=== PATIENT | male | born 2000 | race Caucasian/White ===

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

== ENCOUNTER 2022-01-01 09:53 | Emergency (ER) | payer OTHER ==
[~2022-01-01] VITALS: Ht 182.9 cm; Wt 80.5 kg
[2022-01-01 09:53] VITALS: BP 141/77
== END 2022-01-01 10:51 | disposition home or self-care (01) ==
LOC: M ED 09:53
DX: Z48.02 Encounter for removal of sutures (principal)